=== PATIENT | male | born 1970 | race Caucasian/White ===

== ENCOUNTER 2019-09-10 12:33 | Emergency (ER) | payer MEDICARE, OTHER ==
--- NOTE | 2019-09-10 12:45 | NUR ---
PATIENT ELOPED, LEFT WITHOUT BEING TRIAGED.
== END 2019-09-10 13:08 | disposition left against medical advice (07) ==
LOC: ER 12:35
DX: Z53.21 Procedure and treatment not carried out due to patient leaving prior to being seen by health care provider (principal)